=== PATIENT | female | born 1950 | race African-American/Black ===

== ENCOUNTER 2016-09-09 13:40 | Emergency (ER) | payer OTHER ==
[~2016-09-09] VITALS: Ht 172.7 cm; Wt 131.5 kg
[~2016-09-09 13:40] MED LIST: ADULT LOW DOSE81 MG PO; LOTREL 5-20 MG1 EACH PO; PREDNISOLONE 5 M5 MG PO; PRILOSEC 20 MG20 MG PO; SIMVASTATIN10 MG PO
== END 2016-09-09 17:31 ==
LOC: ER 13:40
DX: I46.9 Cardiac arrest, cause unspecified (principal); Z86.19 Personal history of other infectious and parasitic diseases; Z87.448 Personal history of other diseases of urinary system